=== PATIENT | female | born 1985 | race African-American/Black ===

== ENCOUNTER 2016-09-20 00:41 | Emergency (ER) | payer MEDICAID ==
[~2016-09-20] VITALS: Ht 154.9 cm; Wt 80.0 kg
[2016-09-20 03:50] VITALS: BP 128/82
== END 2016-09-20 04:26 | disposition home or self-care (01) ==
LOC: ER 01:33
DX: J06.9 Acute upper respiratory infection, unspecified (principal); I10 Essential (primary) hypertension
CPT/HCPCS: 99281

== ENCOUNTER 2016-10-08 14:28 | Emergency (ER) | payer MEDICAID ==
[~2016-10-08] VITALS: Ht 157.5 cm; Wt 81.0 kg
[2016-10-08] MEDS ORDERED: METOCLOPRAMIDE HCL 10MG TABLET PO ONE (18:00)
[2016-10-08] MEDS ORDERED: KETOROLAC 30MG/ML VIAL IM ONE (18:00)
[2016-10-08] MEDS ORDERED: METOCLOPRAMIDE HCL 10MG/2ML VIAL IV ONE (18:00)
[2016-10-08] MEDS ORDERED: KETOROLAC 30MG/ML VIAL IV ONE (18:00)
[2016-10-08 18:08] VITALS: BP 136/94
== END 2016-10-08 18:14 | disposition home or self-care (01) ==
LOC: ER 16:10
DX: H83.02 Labyrinthitis, left ear (principal); I10 Essential (primary) hypertension; E78.00 Pure hypercholesterolemia, unspecified; G44.209 Tension-type headache, unspecified, not intractable
CPT/HCPCS: 81025; 96372; 99283; J1885; J8597

== ENCOUNTER 2016-12-12 17:36 | Emergency (ER) | payer SELFPAY ==
[~2016-12-12] VITALS: Ht 157.5 cm; Wt 80.7 kg
[2016-12-12 21:30] VITALS: BP 115/68
== END 2016-12-12 21:30 | disposition home or self-care (01) ==
LOC: ER 21:23
DX: L02.411 Cutaneous abscess of right axilla (principal); I10 Essential (primary) hypertension; E78.00 Pure hypercholesterolemia, unspecified
CPT/HCPCS: 99283